=== PATIENT | male | born 1965 | race African-American/Black ===

== ENCOUNTER 2018-01-23 02:07 | Emergency (ER) | payer MEDICARE, MEDICAID ==
[~2018-01-23] VITALS: Ht 180.3 cm; Wt 95.0 kg
[2018-01-23 02:10] VITALS: BP 153/54
[2018-01-23] MEDS ORDERED: NITROGLYCERIN 0.4MG TABLET SL SL PRN (03:00)
[2018-01-23 03:16] LABS: BASOPHILS % 0.3 % (0.0-2.0); EOSINOPHILS % 1.3 % (0.0-5.0); HEMATOCRIT. 36.1 % (42.0-52.0); HEMOGLOBIN. 11.7 g/dL (14.0-18.0); LYMPHOCYTES % 22.5 % (20.0-50.0); MEAN CORPUSCULAR HEMOGLOBIN 28.5 pg (28.0-32.0); MEAN CORPUSCULAR VOLUME 88.3 fL (80.0-94.0); MEAN PLATELET VOLUME 6.7 fl (7.4-10.4); MONOCYTES % 6.4 % (2.0-8.0); NEUTROPHILS % 69.5 % (40.0-76.0); PLATELET 251 x1000/uL (130-400); RED BLOOD CELL COUNT 4.09 mill/uL (4.7-6.1); RED CELL DISTRIBUTION WIDTH 14.1 % (11.6-14.6)
[2018-01-23 03:24] LABS: CHLORIDE 106 mEq/L (98-107)
[2018-01-23 03:28] LABS: D-DIMER 0.94 mg/L FEU (<0.50); INR 1.1; PARTIAL THROMBOPLASTIN TIME 27.1 sec (23.4-31.0); PROTHROMBIN TIME 11.7 sec (9.4-11.6)
[2018-01-23 03:29] LABS: TROPONIN I < 0.02 ng/mL (0.00-0.04)
== END 2018-01-23 05:10 | disposition left against medical advice (07) ==
LOC: ER 02:07 → EDBEDREQTM 04:31 → EDBEDREQ 04:31 → ER 05:10 → CANRESERV 05:12 → ENRESERV 05:12 → CANBEDREQ 05:26
DX: R07.2 Precordial pain (principal); I10 Essential (primary) hypertension; F17.210 Nicotine dependence, cigarettes, uncomplicated; F12.90 Cannabis use, unspecified, uncomplicated; F10.10 Alcohol abuse, uncomplicated; Y90.9 Presence of alcohol in blood, level not specified
CPT/HCPCS: 36415; 71045; 80048; 83880; 84484; 85025; 85379; 85610; 85730; 93005; 99285

== ENCOUNTER 2018-02-23 00:50 | Emergency (ER) | payer MEDICARE, MEDICAID ==
[~2018-02-23] VITALS: Ht 185.4 cm; Wt 112.0 kg
[2018-02-23] MEDS ORDERED: ASPIRIN 81MG TABLET PO ONE (03:00)
[2018-02-23 03:10] LABS: BASOPHILS % 0.7 % (0.0-2.0); EOSINOPHILS % 1.4 % (0.0-5.0); HEMATOCRIT. 37.4 % (42.0-52.0); HEMOGLOBIN. 12.3 g/dL (14.0-18.0); LYMPHOCYTES % 29.5 % (20.0-50.0); MEAN CORPUSCULAR HEMOGLOBIN 28.6 pg (28.0-32.0); MEAN CORPUSCULAR VOLUME 87.3 fL (80.0-94.0); MEAN PLATELET VOLUME 6.8 fl (7.4-10.4); MONOCYTES % 6.4 % (2.0-8.0); PLATELET 237 x1000/uL (130-400); RED BLOOD CELL COUNT 4.29 mill/uL (4.7-6.1); RED CELL DISTRIBUTION WIDTH 13.6 % (11.6-14.6)
[2018-02-23 03:13] LABS: CHLORIDE 107 mEq/L (98-107)
[2018-02-23 03:16] LABS: INR 1.1; PROTHROMBIN TIME 11.6 sec (9.4-11.6)
[2018-02-23 03:19] VITALS: BP 130/70
== END 2018-02-23 05:52 | disposition left against medical advice (07) ==
LOC: ER 00:53
DX: R07.2 Precordial pain (principal); R06.02 Shortness of breath; R05 Cough; R61 Generalized hyperhidrosis; R09.81 Nasal congestion; I10 Essential (primary) hypertension; M19.90 Unspecified osteoarthritis, unspecified site; F17.200 Nicotine dependence, unspecified, uncomplicated; F12.10 Cannabis abuse, uncomplicated; F15.10 Other stimulant abuse, uncomplicated
CPT/HCPCS: 36415; 71045; 80053; 83880; 84484; 85025; 85610; 93005; 99285

== ENCOUNTER 2018-07-15 12:21 | Emergency (ER) | payer MEDICARE, MEDICAID ==
[~2018-07-15] VITALS: Ht 180.3 cm; Wt 90.0 kg
[2018-07-15] MEDS ORDERED: SODIUM CHLORIDE 0.9% 1,000 ML IV ONE (12:45)
[2018-07-15] MEDS ORDERED: KETOROLAC 30MG/ML VIAL IV STA (12:45)
[2018-07-15 13:23] LABS: BASOPHILS % 0.6 % (0.0-2.0); EOSINOPHILS % 3.1 % (0.0-5.0); HEMATOCRIT. 37.7 % (42.0-52.0); HEMOGLOBIN. 12.6 g/dL (14.0-18.0); LYMPHOCYTES % 19.1 % (20.0-50.0); MEAN CORPUSCULAR HEMOGLOBIN 29.1 pg (28.0-32.0); MEAN CORPUSCULAR VOLUME 87.2 fL (80.0-94.0); MEAN PLATELET VOLUME 7.1 fl (7.4-10.4); MONOCYTES % 7.2 % (2.0-8.0); PLATELET 230 x1000/uL (130-400); RED BLOOD CELL COUNT 4.32 mill/uL (4.7-6.1); RED CELL DISTRIBUTION WIDTH 14.1 % (11.6-14.6)
[2018-07-15 13:29] LABS: CHLORIDE 107 mEq/L (98-107)
[2018-07-15 16:14] VITALS: BP 142/80
== END 2018-07-15 16:15 | disposition home or self-care (01) ==
LOC: ER 12:21
DX: R10.9 Unspecified abdominal pain (principal); R11.2 Nausea with vomiting, unspecified; F32.9 Major depressive disorder, single episode, unspecified; I10 Essential (primary) hypertension; F14.10 Cocaine abuse, uncomplicated; F15.10 Other stimulant abuse, uncomplicated; F12.10 Cannabis abuse, uncomplicated
CPT/HCPCS: 36415; 74176; 80053; 83690; 85025; 96361; 96374; 99285; J1885; J7030

== ENCOUNTER 2019-10-05 16:57 | Emergency (ER) | payer MEDICARE, OTHER ==
[~2019-10-05] VITALS: Ht 185.4 cm; Wt 100.0 kg
[2019-10-05] MEDS ORDERED: BACITRACIN ZINC OINT UDPKT TOP ONE (19:30)
[2019-10-05] MEDS ORDERED: LIDOCAINE HCL/PF 1% 10 MG/ML 5ML VIAL IJ ONE (19:30)
[2019-10-05] MEDS ORDERED: KETOROLAC 30MG/ML VIAL IM ONE (19:30)
[2019-10-05 20:03] LABS: BASOPHILS % 1.2 % (0.0-2.0); EOSINOPHILS % 0.6 % (0.0-5.0); HEMATOCRIT. 43.4 % (42.0-52.0); HEMOGLOBIN. 14.4 g/dL (14.0-18.0); LYMPHOCYTES % 14.8 % (20.0-50.0); MEAN CORPUSCULAR HEMOGLOBIN 29.6 pg (28.0-32.0); MEAN CORPUSCULAR VOLUME 89.5 fL (80.0-94.0); MEAN PLATELET VOLUME 6.7 fl (7.4-10.4); MONOCYTES % 6.9 % (2.0-8.0); NEUTROPHILS % 76.5 % (40.0-76.0); PLATELET 274 x1000/uL (130-400); RED BLOOD CELL COUNT 4.85 mill/uL (4.7-6.1); RED CELL DISTRIBUTION WIDTH 14.4 % (11.6-14.6)
[2019-10-05] MEDS ORDERED: HYDROCODONE/ACETAMINOPHEN 5/325MG TABLET PO ONE (21:15)
[2019-10-05] MEDS ORDERED: CEPHALEXIN 250MG CAPSULE PO ONE (21:15)
[2019-10-05] MEDS ORDERED: SULFAMETHOXAZOLE/TRIMETHOPRIM 800/160MG TABLET PO ONE (21:15)
[2019-10-05 21:30] VITALS: BP 119/69
== END 2019-10-05 21:31 | disposition home or self-care (01) ==
LOC: ER 16:57
DX: S50.861A Insect bite (nonvenomous) of right forearm, initial encounter (principal); L03.113 Cellulitis of right upper limb; W57.XXXA Bitten or stung by nonvenomous insect and other nonvenomous arthropods, initial encounter; Y93.89 Activity, other specified; Y92.89 Other specified places as the place of occurrence of the external cause; I10 Essential (primary) hypertension; F14.10 Cocaine abuse, uncomplicated; F15.10 Other stimulant abuse, uncomplicated; F12.90 Cannabis use, unspecified, uncomplicated
CPT/HCPCS: 36415; 85025; 96372; 99284; J1885; J3490

== ENCOUNTER 2021-03-25 05:29 | Emergency (ER) | payer MEDICARE, MEDICAID ==
[~2021-03-25] VITALS: Ht 182.9 cm; Wt 146.0 kg
[2021-03-25 07:30] VITALS: BP 158/83
[2021-03-25 07:54] LABS: BASOPHILS % 0.6 % (0.0-2.0); EOSINOPHILS % 1.1 % (0.0-5.0); HEMATOCRIT. 41.1 % (42.0-52.0); HEMOGLOBIN. 13.7 g/dL (14.0-18.0); LYMPHOCYTES % 15.8 % (20.0-50.0); MEAN CORPUSCULAR HEMOGLOBIN 29.9 pg (28.0-32.0); MEAN CORPUSCULAR VOLUME 89.7 fL (80.0-94.0); MEAN PLATELET VOLUME 6.5 fl (7.4-10.4); MONOCYTES % 7.3 % (2.0-8.0); NEUTROPHILS % 75.2 % (40.0-76.0); PLATELET 249 x1000/uL (130-400); RED BLOOD CELL COUNT 4.58 mill/uL (4.7-6.1); RED CELL DISTRIBUTION WIDTH 14.2 % (11.6-14.6)
[2021-03-25 08:02] LABS: CHLORIDE 106 mEq/L (98-107)
== END 2021-03-25 08:39 | disposition left against medical advice (07) ==
LOC: ER 05:29
DX: L97.819 Non-pressure chronic ulcer of other part of right lower leg with unspecified severity (principal); I51.7 Cardiomegaly; I10 Essential (primary) hypertension; F12.90 Cannabis use, unspecified, uncomplicated
CPT/HCPCS: 36415; 71045; 80053; 83880; 84484; 85025; 93005; 99285

== ENCOUNTER 2021-09-30 21:31 | Emergency (ER) | payer MEDICARE, MEDICAID ==
[~2021-09-30] VITALS: Ht 182.9 cm; Wt 127.0 kg
[2021-09-30] MEDS ORDERED: ACETAMINOPHEN WITH CODEINE 300/30MG TABLET PO STA (22:32)
[2021-09-30] MEDS ORDERED: KETOROLAC 60MG/2ML VIAL IM STA (22:32)
[2021-10-01] MEDS ORDERED: NAPR-681 PO (00:41)
[2021-10-01] MEDS ORDERED: T3 PO (00:41)
[2021-10-01 01:10] VITALS: BP 100/50
== END 2021-10-01 01:10 | disposition home or self-care (01) ==
LOC: ER 21:31
DX: M25.511 Pain in right shoulder (principal); M25.531 Pain in right wrist; M54.50 Low back pain, unspecified; F12.10 Cannabis abuse, uncomplicated
CPT/HCPCS: 72100; 73030; 73110; 96372; 99284; J1885